=== PATIENT | female | born 1980 | race Caucasian/White ===

== ENCOUNTER 2017-04-04 05:48 | Inpatient (IN) | payer MEDICAID ==
[2017-04-04] VITALS (12 sets, daily range): BP systolic 104–133; BP diastolic 63–75; PULSE 54–89; RESP 18–26; TEMP 97.8–98.9; O2SAT 97–100
[~2017-04-04] VITALS: Ht 157.5 cm; Wt 61.2 kg
[2017-04-04] MEDS ORDERED: SUBUTEX PO (06:12)
[2017-04-04] MEDS ORDERED: PREN29TA PO (06:13)
[2017-04-04] MEDS ORDERED: VIST25CA PO (06:14)
[2017-04-04 06:47] LABS: AUTOMATED NEUTROPHIL # 4.9 TH/MM3 (1.8-7.7); BASOPHIL % 0.4 % (0.0-2.0); EOSINOPHIL # 0.3 TH/MM3 (0-0.4); EOSINOPHIL % 2.9 % (0.0-4.0); HEMATOCRIT 32.1 % (35.0-46.0); HEMO FLAGS DIFF FINAL; LYMPH % 29.9 % (9.0-44.0); LYMPHOCYTE # 2.6 TH/MM3 (1.0-4.8); MEAN CORPUSCULAR HEMOGLOBIN 27.6 PG (27.0-34.0); MEAN CORPUSCULAR HGB CONC 33.6 % (32.0-36.0); MONO % 10.7 % (0.0-8.0); NEUT % 56.1 % (16.0-70.0); PLATELET COUNT 360 TH/MM3 (150-450); RED BLOOD COUNT 3.92 MIL/MM3 (4.00-5.30); RED CELL DISTRIBUTION WIDTH 16.5 % (11.6-17.2); WHITE BLOOD COUNT 8.8 TH/MM3 (4.0-11.0)
[2017-04-04] MEDS ORDERED: CITRIC ACID-SODIUM CITRATE LIQ 30 ML UDC ONE (06:47)
[2017-04-04] MEDS ORDERED: ceFAZolin INJ 1,000 MG VIAL ONE (07:10)
[2017-04-04] MEDS ORDERED: LACTATED RINGER'S 1000 ML IV ONE (07:15)
[2017-04-04] MEDS ORDERED: ceFAZolin 1,000 MG/NS 100 ML IV SCH ×2 (07:15)
[2017-04-04] MEDS ORDERED: CITRIC ACID-SODIUM CITRATE LIQ 30 ML UDC PO SCH (07:15)
[2017-04-04] MEDS: LACTATED RINGER'S 1000 ML IV SCH ×4 (07:15→21:34)
[2017-04-04 07:28] LABS: BACTERIA, URINE RARE /hpf; BLOOD, URINE NEG (NEG); COMMENT (UR) CULT NOT INDICATED; CULTURE IF INDICATED CULT NOT INDICATED; GLUCOSE,URINE NEG (NEG); KETONE, URINE NEG (NEG); MUCUS URINE FEW /lpf (OCC); NITRITE,URINE NEG (NEG); SQUAMOUS EPITHELIAL CELL URINE 4 /hpf (0-5); URINE COLOR YELLOW (YELLW/STRAW)
--- NOTE | 2017-04-04 07:48 | HHI.HP ---
HPI Chief Complaint 39 week IUP with accessory placental lobe. prior section and in recovery from opioid use disorder Date Seen: Apr 04, 2017 Time Seen: 07:30 Travel History International Travel<30 Days: No Contact w/Intl Traveler<30Days: No Known Affected Area: No History of Present Illness HPI 36 yo swf at 39 weeks currently residing at [facility] here for scheduled repeat section. Known accessory lobe with unclear location of connection despite dopplers. Has been in recovery from polysubstance use. On subutex and compliant with contract No PTL, HTN, GDM No leaking, bleeding No regular UCs. Weeks Gestation: 39 Para: 1 : 1 History Past Medical History Medical History: Denies Significant Hx Obstetric History Obstetric History one prior section Past Surgical History Narrative Surgical prior section Surgical History: No Previous Surgery Family History Family History: Negative Social History Alcohol Use: No Tobacco Use: Yes Substance Abuse: Yes Allergies-Medications (Allergen,Severity, Reaction): Coded Allergies: No Known Allergies (Verified Allergy, Mild, 04/04/17) Home Meds Reported Medications Hydroxyzine Pamoate (Vistaril) 25 Mg Cap, 25 MG PO TID Y for ANXIETY, CAP 0 Refills 04/04/17 Vit-Iron Carbonyl ( Plus Iron 29-1 mg) 29 Mg Iron-1 Mg Tab, 1 TAB PO DAILY for Nutritional Supplement, #30 TAB 0 Refills 04/04/17 [Subutex] No Conflict Check, 12 MG PO DAILY 04/04/17 Review of Systems General / Constitutional: No: Fever, Weight Gain, Chills, Other Physical Exam Vital Signs Date Time Temp Pulse Resp B/P (MAP) Pulse Ox O2 Delivery O2 Flow Rate FiO2 04/04/17 06:30 97.8 04/04/17 06:15 18 04/04/17 06:12 85 104/69 (81) Narrative GENERAL: Well-nourished, well-developed patient. SKIN: Warm and dry. HEAD: Normocephalic and atraumatic. EYES: No scleral icterus. No injection or drainage. ENT: No nasal drainage noted. Mucous membranes pink. Airway patent. NECK: Supple, trachea midline. No JVD. CARDIOVASCULAR: Regular rate and rhythm without murmurs, gallops, or rubs. RESPIRATORY: Breath sounds equal bilaterally. No accessory muscle use. BREASTS: Bilateral exam showed no masses , no retractions, no nipple discharge. ABDOMEN/GI: Abdomen soft, non-tender, bowel sounds present, no rebound, no guarding Gravid to [-] weeks size term fundus long/closed/posterior/firm EXTREMITIES: No cyanosis or edema. BACK: Nontender without obvious deformity. No CVA tenderness. NEUROLOGICAL: Awake and alert. Motor and sensory grossly within normal limits. Five out of 5 muscle strength in all muscle groups. Normal speech. Caprini VTE Risk Assessment Caprini VTE Risk Assessment: No/Low Risk (score <= 1) Caprini Risk Assessment Model Point Value = 1 Point Value = 2 Point Value = 3 Point Value = 5 Age 41-60 Minor surgery BMI > 25 kg/m2 Swollen legs Varicose veins or History of unexplained or recurrent spontaneous Oral contraceptives or hormone replacement Sepsis (< 1 month) Serious lung disease, including pneumonia (< 1 month) Abnormal pulmonary function Acute myocardial infarction Congestive heart failure (< 1 month) History of inflammatory bowel disease Medical patient at bed rest Age 61-74 Arthroscopic surgery Major open surgery (> 45 min) Laparoscopic surgery (> 45 min) Malignancy Confined to bed (> 72 hours) Immobilizing plaster cast Central venous access Age >= 75 History of VTE Family history of VTE Factor V Leiden Prothrombin [id number] Lupus anticoagulant Anticardiolipin antibodies Elevated serum homocysteine Heparin-induced thrombocytopenia Other congenital or acquired thrombophilia Stroke (< 1 month) Elective arthroplasty Hip, pelvis, or leg fracture Acute spinal cord injury (< 1 month) Prophylaxis Regimen Total Risk Factor Score Risk Level Prophylaxis Regimen 0-1 Low Early ambulation 2 Moderate Order ONE of the following: *Sequential Compression Device (SCD) *Heparin 5000 units SQ BID 3-4 Higher Order ONE of the following medications: *Heparin 5000 units SQ TID *Enoxaparin/Lovenox 40 mg SQ daily (WT < 150 kg, CrCl > 30 mL/min) *Enoxaparin/Lovenox 30 mg SQ daily (WT < 150 kg, CrCl > 10-29 mL/min) *Enoxaparin/Lovenox 30 mg SQ BID (WT < 150 kg, CrCl > 30 mL/min) AND/OR *Sequential Compression Device (SCD) 5 or more Highest Order ONE of the following medications: *Heparin 5000 units SQ TID (Preferred with Epidurals) *Enoxaparin/Lovenox 40 mg SQ daily (WT < 150 kg, CrCl > 30 mL/min) *Enoxaparin/Lovenox 30 mg SQ daily (WT < 150 kg, CrCl > 10-29 mL/min) *Enoxaparin/Lovenox 30 mg SQ BID (WT < 150 kg, CrCl > 30 mL/min) AND *Sequential Compression Device (SCD) Data Data Orders Orders Admit To Inpatient (04/04/17 ) Code Status (04/04/17 05:58) Vital Signs (Adult) .ON ADMISSION (04/04/17 05:58) Activity Oob Ad Marya (04/04/17 05:58) Heart (04/04/17 05:58) Urinary Catheter Management MATY.Q8H (04/04/17 05:58) ^ Preps (04/04/17 05:58) Scd / Kamari / Foot Pump MATY.QSHIFT (04/04/17 05:58) ^ Ultrasound For Locatio (04/04/17 05:58) Diet Npo (04/04/17 Breakfast) Type And Screen (04/04/17 05:58) Complete Blood Count With Diff (04/04/17 05:58) Urinalysis - C+S If Indicated (04/04/17 05:58) Drug Screen, Random Urine (04/04/17 05:58) Specimen To Be Collected PRN (04/04/17 05:58) Specimen To Be Collected PRN (04/04/17 05:58) Citric Acid-Sodium Citrate Liq (Bicitra (04/04/17 06:47) Cefazolin Inj (Ancef Inj) (04/04/17 07:10) Lactated Ringer's 1000 Ml Inj (Lr 1000 M (04/04/17 07:15) Lactated Ringer's 1000 Ml Inj (Lr 1000 M (04/04/17 07:15) Citric Acid-Sodium Citrate Liq (Bicitra (04/04/17 07:15) Cefazolin Inj (Ancef Inj) (04/04/17 07:15) Labs Laboratory Tests Test 04/04/17 06:20 White Blood Count 8.8 Red Blood Count 3.92 Hemoglobin 10.8 Hematocrit 32.1 Mean Corpuscular Volume 82.0 Mean Corpuscular Hemoglobin 27.6 Mean Corpuscular Hemoglobin Concent 33.6 Red Cell Distribution Width 16.5 Platelet Count 360 Mean Platelet Volume 9.2 Neutrophils (%) (Auto) 56.1 Lymphocytes (%) (Auto) 29.9 Monocytes (%) (Auto) 10.7 Eosinophils (%) (Auto) 2.9 Basophils (%) (Auto) 0.4 Neutrophils # (Auto) 4.9 Lymphocytes # (Auto) 2.6 Monocytes # (Auto) 0.9 Eosinophils # (Auto) 0.3 Basophils # (Auto) 0.0 CBC Comment DIFF FINAL Differential Comment Assessment/Plan Assessment and Plan for repeat section and desired BTL discussed risks, benefit, alternative failure rate of tubel discussed repeat section risks and expectations For section now Kacie Rey MD Apr 04, 2017 07:48
[2017-04-04] MEDS ORDERED: SODIUM CHLORIDE 0.9% FLUSH 10 ML FLUSH IV FLUSH PRN (08:30)
[2017-04-04] MEDS ORDERED: ACETAMINOPHEN 1000 MG/100 ML 100 ML IV ONE ×2 (08:30→09:21)
[2017-04-04] MEDS ORDERED: oxyCODONE/ACETAMINOPHEN 5 MG/325 MG TAB PO PRN ×2 (08:30)
[2017-04-04] MEDS ORDERED: OXYTOCIN 30 UNITS-500ML PREMIX 500 ML IV ONE (08:30)
[2017-04-04] MEDS ORDERED: ZOLPIDEM TARTRATE 5 MG TAB PO PRN (08:30)
[2017-04-04] MEDS ORDERED: ONDANSETRON HCL 4 MG/2 ML VIAL IV PUSH PRN (08:30)
[2017-04-04] MEDS ORDERED: SIMETHICONE 80 MG CHEWABLE TAB PO PRN (08:30)
--- NOTE | 2017-04-04 08:37 | PD.OB.DELI ---
Procedure Note Section Procedure Pre Op Diagnosis: (1) Opioid use disorder, mild, in controlled environment (2) Status post repeat low transverse section Post Op Diagnosis: (1) Status post repeat low transverse section Performed by Kacie Rey Procedure: Repeat Low Transverse Sec, Other (tubal ligation) Indication for delivery: Desired elective repeat , Other (tubal ligation) Previous condition: Uterine Window Informed consent obtained: For anesthesia, For procedure Confirmed correct: Patient, Procedure, Site, Time-out taken Anesthesia: Spinal Medication prior to procedure: As documented in eMAR, Antibiotics, IV Monitoring during procedure: Blood pressure monitoring, talent acquisition director, Pulse oximetry Urinary catheter: Inserted using sterile technique, To dependent drainage Sterile preparation: Duraprep, In usual fashion Position: Supine with wedge to right side Operative Features Skin Incision: Pfannenstiel Uterine Incision: Low transverse w/knife / blunt ext Membranes Ruptured: Artificially Presentation: Occiput anterior Delivery date: Apr 04, 2017 Delivery time: 08:35 Delivery of : Assisted Infant: Female One Minute : 8 Five Minute : 8 Weight: 7 Status of : Viable, Umbilical cord, Nursery present, Resuscitation required Placenta delivered: Intact, Other (accessory lobe noted) Medications: Antibiotics, Oxytocin Estimated blood loss: 500 Procedure tolerated: Well Maternal Condition: Stable Baby Complications: Other (TTN) Procedure in detail dictated Kacie Rey MD Apr 04, 2017 08:37
[2017-04-04] MEDS ORDERED: DEXAMETHASONE SOD PHOS 20 MG/5 ML VIAL ONE (08:58)
[2017-04-04] MEDS ORDERED: ROPIVACAINE 0.5% PF INJ 30 ML VIAL ONE (08:58)
[2017-04-04] MEDS: SODIUM CHLORIDE 0.9% FLUSH 10 ML FLUSH IV FLUSH SCH ×2 (09:00→21:00)
[2017-04-04] MEDS ORDERED: OXYTOCIN 30 UNITS-500ML PREMIX 500 ML ONE (09:21)
[2017-04-04] MEDS ORDERED: KETOROLAC TROMETHAMINE 30 MG/ML (IVP) VIAL ONE (09:32)
--- NOTE | 2017-04-04 09:32 | PD.OP ---
Operative Report Date of Surgery: Apr 04, 2017 Preoperative Diagnosis: (1) 39 weeks gestation of (2) Opioid use disorder, mild, in controlled environment Postoperative Diagnosis: (1) 39 weeks gestation of (2) Opioid use disorder, mild, in controlled environment Procedure: Repeat Low Transverse Section with right tubal ligation and left salpingectomy Anesthesia: Spinal Surgeon: Kacie Rey Quality Control Engineer(s): Joy Flaherty and Christie Chen, MS3 Resident Surgeon: Shantelle Valero Operation and Findings: PREOPERATIVE DIAGNOSIS 39 weeks gestation Repeat Bilateral Tubal Ligation (Right Tubal Ligation, Left Salpingectomy) POSTOPERATIVE DIAGNOSIS 39 weeks gestation Repeat Bilateral Tubal Ligation (Right Tubal Ligation, Left Salpingectomy) PROCEDURE Repeat low transverse section with right tubal ligation and left salpingectomy ANESTHESIA Spinal SURGEON Kacie Rey MD and Shantelle Valero, R3 FINDINGS Left uterine accessory lobe A normal viable female weighing 3249g. 's 8/8. COMPLICATIONS None COUNTS Correct ESTIMATED BLOOD LOSS 650 cc FLUIDS Crystalloids CONDITION The patient tolerated the procedure well and went to the recovery room in good condition. PROCEDURE IN DETAIL The patient was taken to the operating room, identified by name band and verbally. The time out was done and patient was prepped and draped in the usual sterile fashion for section. A Pfannenstiel incision was made at the site of the patient's previous scar, then carried down to the fascia. The fascia was taken off the rectus muscle by blunt and sharp dissection, taking care to avoid the bladder which was in close proximity to the inferior aspect of the fascia. The rectus muscles were spread bluntly and the peritoneum entered under direct vision without difficulty. The incision was extended and a bladder blade was placed. A bladder flap was created in the usual fashion and the uterus was incised transversely along the lower uterine segment and extended bluntly. The vertex was grasped and fundal pressure was applied. The head was delivered and then the remainder of the infant was delivered without difficulty. Cord clamping was delayed for 45 seconds with milking of the cord before the cord was doubly clamped and cut and the baby was handed to the baby nurse. The placenta was delivered manually. The uterus, notable for a left accessory lobe, was curettaged with a wet lap. The uterine incision was repaired with #1 chromic in a running locking fashion in two layers with the second imbricating the first. Attention was turned to the the fallopian tubes. The right fallopian tube was identified and the fimbriated end was inspected and found to be adhered to the surrounding structures by scar tissue. Using #2 plain suture, a small portion of the fallopian tube was ligated and removed sharply and turned in for pathologic diagnosis. The left fallopian tube was identified and the fimbriated end was grasped and ligated using #2 plain suture then removed sharply. Hemostasis was excellent. Once this had been accomplished, all incisions were carefully inspected. Hemostasis was excellent. The gutters were irrigated and cleaned of blood and debris. The rectus muscles were reapproximated with 0 Vicryl in a running fashion and then the fascia was repaired with 0 Vicryl in a running fashion. The subcuticular layer was repaired with 3-0 plain and the skin with a 4-0 Monocryl in a subcuticular fashion. The wound was sterilely dressed with Mepilex. The patient tolerated the procedure well and went to the recovery room in good condition. Shantelle Valero MD, R3 Apr 04, 2017 09:32
[2017-04-04] MEDS: LACTATED RINGER'S 1000 ML INJ 1,000 ML IV SCH ×2 (13:27→21:33)
[2017-04-04 13:40] LABS: CHLAMYDIA PCR NOT DETECTED (NOT DETECT); NEISSERIA PCR NOT DETECTED (NOT DETECT)
[2017-04-04] MEDS: KETOROLAC TROMETHAMINE 60 MG/2 ML (IM) VIAL IM PRN ×2 (15:45→22:47)
[2017-04-04] MEDS ORDERED: OXYTOCIN 30 UNITS-500ML PREMIX 500 ML IV PRN (18:30)
[2017-04-04] MEDS: BUPRENORPHINE HCL 8 MG SUBLINGUAL TAB SL SCH (18:38)
[2017-04-05 01:05] VITALS: BP 93/54; PULSE 85; RESP 16; TEMP 98.5; O2SAT 95
[2017-04-05 05:05] VITALS: BP 107/65; PULSE 65; RESP 16; TEMP 98.8; O2SAT 95
[2017-04-05] MEDS: BUPRENORPHINE HCL 8 MG SUBLINGUAL TAB SL SCH ×2 (05:25→18:37)
[2017-04-05 05:53] LABS: AUTOMATED NEUTROPHIL # 8.5 TH/MM3 (1.8-7.7); BASOPHIL % 0.3 % (0.0-2.0); EOSINOPHIL # 0.1 TH/MM3 (0-0.4); EOSINOPHIL % 0.4 % (0.0-4.0); HEMATOCRIT 28.1 % (35.0-46.0); HEMO FLAGS DIFF FINAL; LYMPH % 21.5 % (9.0-44.0); LYMPHOCYTE # 2.7 TH/MM3 (1.0-4.8); MEAN CELL VOLUME 82.1 FL (80.0-100.0); MEAN CORPUSCULAR HEMOGLOBIN 28.1 PG (27.0-34.0); MEAN CORPUSCULAR HGB CONC 34.3 % (32.0-36.0); MONO % 10.9 % (0.0-8.0); NEUT % 66.9 % (16.0-70.0); PLATELET COUNT 364 TH/MM3 (150-450); RED BLOOD COUNT 3.42 MIL/MM3 (4.00-5.30); RED CELL DISTRIBUTION WIDTH 16.5 % (11.6-17.2); WHITE BLOOD COUNT 12.7 TH/MM3 (4.0-11.0)
[2017-04-05] MEDS ORDERED: KETOROLAC TROMETHAMINE 60 MG/2 ML (IM) VIAL IM ONE (06:30)
[2017-04-05] MEDS ORDERED: IBUP-1129 PO (06:37)
--- NOTE | 2017-04-05 06:38 | HHI.OB ---
Subjective Post Operative Day: 1 Remarks doing well, ambulating, voiding, TPO no n/v, + flatus, pain controlled, VB < menses Objective Vitals/I&O Vital Signs Date Time Temp Pulse Resp B/P (MAP) Pulse Ox O2 Delivery O2 Flow Rate FiO2 04/05/17 05:05 98.8 65 16 107/65 (79) 95 04/05/17 01:05 98.5 85 16 93/54 (67) 95 04/04/17 20:30 97.9 89 18 111/71 (84) 04/04/17 18:40 98.6 83 18 106/70 (82) 97 04/04/17 14:05 98.9 54 18 116/72 (87) 99 04/04/17 12:05 18 04/04/17 09:53 117/71 (86) 04/04/17 09:53 98.0 80 24 100 04/04/17 09:40 77 22 117/71 (86) 100 04/04/17 09:25 133/64 (87) 04/04/17 09:25 70 24 100 04/04/17 09:10 116/75 (89) 04/04/17 09:10 26 99 04/04/17 09:10 70 04/04/17 08:55 73 24 108/63 (78) 98 04/04/17 08:55 98.0 Result Diagram: 04/05/17516 Objective Remarks GENERAL: Well-nourished, well-developed patient. CARDIOVASCULAR: Regular rate and rhythm without murmurs, gallops, or rubs. RESPIRATORY: Breath sounds equal bilaterally. No accessory muscle use. ABDOMEN/GI: Abdomen soft, non-tender, bowel sounds present. Incision: bandage = Clean, dry and intact. Fundus: Firm, non-tender at umbilicus. GENITOURINARY: Light to moderate bleeding. EXTREMITIES: No cyanosis or edema, non-tender, without signs of DVT. Not wearing SCDs Medications and IVs Current Medications Medications (Trade) Dose Ordered Sig/Lexus Route Start Time Stop Time Status Last Admin Lactated Ringer's 1,000 ml @ 150 mls/hr Q6H40M IV 04/04/17 07:15 04/04/17 07:15 (Bicitra Liq) 30 ml CORRESPONDENCE COORDINATOR PO 04/04/17 07:15 04/07/17 07:14 Cefazolin Sodium 1000 mg/Sodium Chloride 100 ml @ 200 mls/hr CORRESPONDENCE COORDINATOR IV 04/04/17 07:15 04/07/17 07:14 Lactated Ringer's 1,000 ml @ 100 mls/hr Q10H IV 04/04/17 13:27 04/05/17 09:26 Oxytocin 500 ml @ 100 mls/hr UNSCH X1 PRN IV 04/04/17 18:30 04/05/17 18:29 (NS Flush) 2 ml BID IV FLUSH 04/04/17 09:00 (NS Flush) 2 ml UNSCH PRN IV FLUSH 04/04/17 08:30 (Mylicon Chew) 80 mg QID PRN PO 04/04/17 08:30 (Toradol Inj) 30 mg Q6H PRN IM 04/04/17 08:30 04/05/17 08:29 04/04/17 22:47 (Ambien) 5 mg HS PRN PO 04/04/17 08:30 04/04/17 22:46 (M-M-R Ii Inj) 0.5 ml ONCE ONCE SQ 04/05/17 16:00 04/05/17 16:01 (Boostrix Inj) 0.5 ml ONCE ONCE IM 04/05/17 16:00 04/05/17 16:01 (Zofran Inj) 4 mg Q6H PRN IV PUSH 04/04/17 08:30 (Buprenorphine) 4 mg DAILY@0600 SL 04/05/17 06:00 04/05/17 05:25 (Buprenorphine) 8 mg DAILY@1800 SL 04/04/17 18:00 04/04/17 18:38 Assessment/Plan Assessment and Plan 36 yo s/p scheduled RLTCS and BTL at 39w 1. POD #1: AF, VSS, meeting milestones, allow 1 more dose toradol, then begin motrin, encourged to wear her SCDs and ambulate today. Has rx for subutex at [facility], will discuss with Dr. Quispe if would send her with additional percocet - AM CDC appropriate 2. Opiod use disorder: taking subutex here, see above 3. PP: female, encouraged to breast feed, s/p BTL 4. Hep C: no needed intervention Armaan Alvarado MD Apr 05, 2017 06:38
[2017-04-05 07:30] VITALS: BP 105/68; PULSE 60; RESP 16; TEMP 98.2; O2SAT 97
[2017-04-05] MEDS: IBUPROFEN 600 MG TAB PO PRN ×2 (14:19→21:08)
[2017-04-05] MEDS ORDERED: MEASLES, MUMPS, RUBELLA VACCINE 0.5 ML VIAL SQ ONE (16:00)
[2017-04-05] MEDS ORDERED: DIPHTH/TETANUS/ACEL PERTUSSIS (BOOSTER) 0.5 ML VIAL/PFS IM ONE (16:00)
[2017-04-05] MEDS: LACTATED RINGER'S 1000 ML IV SCH (17:16)
[2017-04-05 19:30] VITALS: BP 117/60; PULSE 71; RESP 20; TEMP 97.9; O2SAT 99
[2017-04-06 01:08] VITALS: RESP 20
[2017-04-06] MEDS: BUPRENORPHINE HCL 8 MG SUBLINGUAL TAB SL SCH ×2 (06:44→18:02)
[2017-04-06] MEDS: IBUPROFEN 600 MG TAB PO PRN ×3 (06:46→18:02)
--- NOTE | 2017-04-06 07:11 | HHI.OB ---
Subjective Post Operative Day: 2 Remarks Doing well, pain controlled, tolerating diet, passing flatus, does have concerns about her pain control when she is at [employer]. Objective Vitals/I&O Vital Signs Date Time Temp Pulse Resp B/P (MAP) Pulse Ox O2 Delivery O2 Flow Rate FiO2 04/06/17 01:08 20 04/05/17 19:30 97.9 04/05/17 19:30 20 04/05/17 19:30 71 117/60 (79) 04/05/17 19:30 99 04/05/17 07:30 98.2 60 16 105/68 (80) 97 Result Diagram: 04/05/17 0517 Objective Remarks GENERAL: Well-nourished, well-developed patient. CARDIOVASCULAR: Regular rate and rhythm without murmurs, gallops, or rubs. RESPIRATORY: Breath sounds equal bilaterally. No accessory muscle use. ABDOMEN/GI: Abdomen soft, non-tender, bowel sounds present. Incision: Incision Clean, dry and intact. Fundus: Firm, non-tender at umbilicus. GENITOURINARY: Light to moderate bleeding. EXTREMITIES: No cyanosis or edema, non-tender, without signs of DVT. Not wearing SCDs Medications and IVs Current Medications Medications (Trade) Dose Ordered Sig/Lexus Route Start Time Stop Time Status Last Admin Lactated Ringer's 1,000 ml @ 150 mls/hr Q6H40M IV 04/04/17 07:15 04/04/17 07:15 (Bicitra Liq) 30 ml ENVIRONMENTAL PROPERTY ASSESSOR PO 04/04/17 07:15 04/07/17 07:14 Cefazolin Sodium 1000 mg/Sodium Chloride 100 ml @ 200 mls/hr ENVIRONMENTAL PROPERTY ASSESSOR IV 04/04/17 07:15 04/07/17 07:14 (NS Flush) 2 ml BID IV FLUSH 04/04/17 09:00 (NS Flush) 2 ml UNSCH PRN IV FLUSH 04/04/17 08:30 (Mylicon Chew) 80 mg QID PRN PO 04/04/17 08:30 (Ambien) 5 mg HS PRN PO 04/04/17 08:30 04/04/17 22:46 (Zofran Inj) 4 mg Q6H PRN IV PUSH 04/04/17 08:30 (Buprenorphine) 4 mg DAILY@0600 SL 04/05/17 06:00 04/06/17 06:44 (Buprenorphine) 8 mg DAILY@1800 SL 04/04/17 18:00 04/05/17 18:37 (Motrin) 600 mg Q6H PRN PO 04/05/17 12:30 04/06/17 06:46 Assessment/Plan Assessment and Plan 36 yo s/p scheduled RLTCS and BTL at 39w 1. POD #2: AF, VSS, meeting milestones, bandage removed, asked nurse to apply Steri-Strips and AVD pad. Anticipate discharge home tomorrow 2. Opiod use disorder: taking subutex here 3. PP: female, encouraged to breast feed, s/p BTL 4. Hep C: no needed intervention Armaan Alvarado MD Apr 06, 2017 07:11
[2017-04-06 08:00] VITALS: BP 115/62; PULSE 56; RESP 15; TEMP 97.7; O2SAT 97
[2017-04-06] MEDS ORDERED: BUPR8SUB SL ×2 (09:33)
[2017-04-06] MEDS ORDERED: IBUP-232 PO (09:35)
[2017-04-06] MEDS ORDERED: PAME25CA PO (09:37)
[2017-04-06] MEDS ORDERED: CELE20TA PO (09:51)
[2017-04-06] MEDS: NORTRIPTYLINE HCL 25 MG CAP PO PRN ×2 (11:12→18:02)
[2017-04-06 20:00] VITALS: BP 117/72; PULSE 91; RESP 20; TEMP 98; O2SAT 100
[2017-04-07] MEDS: IBUPROFEN 600 MG TAB PO PRN ×2 (02:45→08:26)
[2017-04-07] MEDS: NORTRIPTYLINE HCL 25 MG CAP PO PRN ×2 (02:50→11:58)
[2017-04-07] MEDS: BUPRENORPHINE HCL 8 MG SUBLINGUAL TAB SL SCH (06:05)
[2017-04-07 08:18] VITALS: BP 125/81; PULSE 66; RESP 16; TEMP 97.5
--- NOTE | 2017-04-07 08:19 | HHI.OB ---
Subjective Post Operative Day: 3 Remarks doing well, ready for d/c home Objective Vitals/I&O Vital Signs Date Time Temp Pulse Resp B/P (MAP) Pulse Ox O2 Delivery O2 Flow Rate FiO2 04/07/17 04:00 16 04/06/17 20:00 98.0 91 20 100 04/06/17 20:00 117/72 (87) Result Diagram: 04/05/17 0517 Objective Remarks GENERAL: Well-nourished, well-developed patient. CARDIOVASCULAR: Regular rate and rhythm without murmurs, gallops, or rubs. RESPIRATORY: Breath sounds equal bilaterally. No accessory muscle use. ABDOMEN/GI: Abdomen soft, non-tender, bowel sounds present. Incision: Incision Clean, dry and intact. Fundus: Firm, non-tender at umbilicus. GENITOURINARY: Light to moderate bleeding. EXTREMITIES: No cyanosis or edema, non-tender, without signs of DVT. Not wearing SCDs Medications and IVs Current Medications Medications (Trade) Dose Ordered Sig/Lexus Route Start Time Stop Time Status Last Admin Lactated Ringer's 1,000 ml @ 150 mls/hr Q6H40M IV 04/04/17 07:15 04/04/17 07:15 (NS Flush) 2 ml BID IV FLUSH 04/04/17 09:00 (NS Flush) 2 ml UNSCH PRN IV FLUSH 04/04/17 08:30 (Mylicon Chew) 80 mg QID PRN PO 04/04/17 08:30 (Ambien) 5 mg HS PRN PO 04/04/17 08:30 04/04/17 22:46 (Zofran Inj) 4 mg Q6H PRN IV PUSH 04/04/17 08:30 (Buprenorphine) 4 mg DAILY@0600 SL 04/05/17 06:00 04/07/17 06:05 (Buprenorphine) 8 mg DAILY@1800 SL 04/04/17 18:00 04/06/17 18:02 (Motrin) 600 mg Q6H PRN PO 04/05/17 12:30 04/07/17 02:45 (Pamelor) 25 mg TID PRN PO 04/06/17 09:45 04/07/17 02:50 (CeleXA) 20 mg DAILY PO 04/07/17 09:00 Assessment/Plan Assessment and Plan 36 yo s/p scheduled RLTCS and BTL at 39w 1. POD #3: AF, VSS, meeting milestones, d/c home today.Aware of post op follow up and precautions 2. Opioid use disorder: taking subutex here 3. PP: female, encouraged to breast feed, s/p BTL 4. Hep C: no needed intervention Armaan Alvarado MD Apr 07, 2017 08:19
--- NOTE | 2017-04-07 08:20 | HHI.DCPOC ---
Discharge Care Plan Diagnosis: (1) Hepatitis C (2) Status post repeat low transverse section (3) Opioid use disorder, mild, in controlled environment Your Health Problems Are: delivery Report Symptoms to Your Doctor -Temperature above 100.5 degrees -Redness, of incision or excessive or foul smelling drainage -Unusual pain or calf pain -Increased vaginal bleeding -Painful or difficulty urinating -Feelings of extreme sadness or anxiety after 2 weeks Goals to Promote Your Health * To prevent worsening of your condition and complications * To maintain your health at the optimal level Directions to Meet Your Goals Take your medications as prescribed Follow your dietary instruction Follow activity as directed Ensure plenty of rest for recovery Drink fluids for hydration Keep your appointments as scheduled Take your immunizations and boosters as scheduled If your symptoms worsen call your PCP, if no PCP go to Urgent Care Center or Emergency Room Smoking is Dangerous to Your Health. Avoid second hand smoke Call the 24-hour crisis hotline for domestic abuse at Armaan Alvarado MD Apr 07, 2017 08:20
[2017-04-07] MEDS ORDERED: CITALOPRAM HYDROBROMIDE 20 MG TAB PO SCH (09:00)
[2017-04-07] MEDS ORDERED: INFLUENZA VIRUS VACCINE (QUADRIVALENT) 0.5 ML SYR IM ONE (12:30)
[2017-04-08] MEDS ORDERED: INFLUENZA VIRUS VACCINE (QUADRIVALENT) 0.5 ML SYR IM ONE (10:00)
== END 2017-04-07 13:59 | disposition home or self-care (01) | DRG 765 ==
LOC: H2EB 05:48 → H1EA 10:25
PROVIDERS: ADMIT Obstetrics & Gynecology; ATTEND Obstetrics & Gynecology
PROC: 10D00Z1 Extraction of Products of Conception, Low, Open Approach (ICD-10-PCS; principal; 2017-04-04)
PROC: 0UB70ZZ Excision of Bilateral Fallopian Tubes, Open Approach (ICD-10-PCS; 2017-04-04)
DX: O99.334 Smoking (tobacco) complicating childbirth (principal); O98.42 Viral hepatitis complicating childbirth; O34.211 Maternal care for low transverse scar from previous cesarean delivery; O99.324 Drug use complicating childbirth; Z37.0 Single live birth; Z3A.39 39 weeks gestation of pregnancy; Z30.2 Encounter for sterilization; F11.10 Opioid abuse, uncomplicated; B19.20 Unspecified viral hepatitis C without hepatic coma; Z23 Encounter for immunization
CPT/HCPCS: 59025; 80307; 81001; 85025; 86850; 86900; 86901; 87491; 87591; 88302; 90686; 90715; J0131; J0690; J1100; J1885; J2590; J2795; J7120; Q2038

== ENCOUNTER 2017-10-20 10:26 | Emergency (ER) | payer SELFPAY ==
[2017-10-20] VITALS (10 sets, daily range): BP systolic 105–120; BP diastolic 58–76; PULSE 66–98; RESP 16–18; TEMP 98.2; O2SAT 95–98
[~2017-10-20] VITALS: Ht 160 cm; Wt 56.2 kg
[~2017-10-20 10:26] MED LIST: BUPR8SUB SL; CELE20TA PO; IBUP-1129 PO; IBUP-232 PO; PAME25CA PO; PREN29TA PO; SUBUTEX PO; VIST25CA PO
[2017-10-20] MEDS ORDERED: SERO100T PO (10:56)
[2017-10-20] MEDS ORDERED: BUPR150CR PO (10:56)
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
[2017-10-20 11:16] LABS: BASOPHIL % 0.4 % (0.0-2.0); EOSINOPHIL % 0.2 % (0.0-4.0); HEMATOCRIT 39.4 % (35.0-46.0); HEMOGLOBIN 13.1 GM/DL (11.6-15.3); LYMPH % 19.9 % (9.0-44.0); LYMPHOCYTE # 2.2 TH/MM3 (1.0-4.8); MEAN CELL VOLUME 89.3 FL (80.0-100.0); MEAN CORPUSCULAR HEMOGLOBIN 29.6 PG (27.0-34.0); MEAN CORPUSCULAR HGB CONC 33.2 % (32.0-36.0); MEAN PLATELET VOLUME 9.9 FL (7.0-11.0); MONO % 7.7 % (0.0-8.0); MONOCYTE # 0.9 TH/MM3 (0-0.9); NEUT % 71.8 % (16.0-70.0); PLATELET COUNT 239 TH/MM3 (150-450); RED BLOOD COUNT 4.41 MIL/MM3 (4.00-5.30); RED CELL DISTRIBUTION WIDTH 13.7 % (11.6-17.2); WHITE BLOOD COUNT 11.1 TH/MM3 (4.0-11.0)
[2017-10-20 11:31] LABS: CHLORIDE 107 MEQ/L (98-107); SODIUM (NA) 140 MEQ/L (136-145)
[2017-10-20 11:34] LABS: CALCIUM 9.1 MG/DL (8.5-10.1)
[2017-10-20 11:35] LABS: ALBUMIN 3.9 GM/DL (3.4-5.0); BLOOD UREA NITROGEN 16 MG/DL (7-18); GLUCOSE,RANDOM 115 MG/DL (74-106)
[2017-10-20 11:37] LABS: AST (GOT) 35 U/L (15-37)
[2017-10-20 11:38] LABS: ALT (GPT) 53 U/L (10-53); CREATININE 0.62 MG/DL (0.50-1.00); GLOMERULAR FILTRATION RATE 109 ML/MIN (>89)
[2017-10-20 11:39] LABS: TOTAL BILIRUBIN ADULT 0.6 MG/DL (0.2-1.0); TOTAL PROTEIN 8.1 GM/DL (6.4-8.2)
[2017-10-20 11:40] LABS: ALKALINE PHOSPHATASE 80 U/L (45-117)
--- NOTE | 2017-10-20 11:40 | RADRPT ---
EXAM DATE: 10/20/2017 11:36 AM EDT AGE/SEX: 37 years / Female INDICATIONS: Vomiting, overdose CLINICAL DATA: This is the patient's initial encounter. Patient reports that signs and symptoms have been present for 1 day and indicates a pain score of Nonresponsive. MEDICAL/SURGICAL HISTORY: None. None. COMPARISON: No prior [place] exams available for comparison. FINDINGS: A single AP view of the chest demonstrates the lungs to be symmetrically aerated without evidence of mass, infiltrate or effusion. The cardiomediastinal contours are unremarkable. Osseous structures a re intact. CONCLUSION: Negative examination. Electronically signed by: Lexie Huggins MD 10/20/2017 11:38 AM EDT
--- NOTE | 2017-10-20 11:59 | RADRPT ---
EXAM DATE: 10/20/2017 11:47 AM EDT AGE/SEX: 37 years / Female INDICATIONS: Altered mental status. Overdose. CLINICAL DATA: This is the patient's initial encounter. Patient reports that signs and symptoms have been present for 1 day and indicates a pain score of 0/10. MEDICAL/SURGICAL HISTORY: None. section. RADIATION DOSE: 51.56 CTDI (mGy) COMPARISON: No prior [place] exams available for comparison. TECHNIQUE: CT of the head without contrast. Using automated exposure control and adjustment of the mA and/or kV according to patient size, radiation dose was kept as low as reasonably achievable to ob tain optimal diagnostic quality images. FINDINGS: Cerebrum: The ventricles are normal for age. No evidence of midline shift, mass lesion, hemorrhage or acute infarction. No extraaxial fluid collections are seen. Posterior Fossa: There is high density material identified within the left cerebellum with mass effe ct upon the fourth ventricle and ambient cistern. Extracranial: The visualized portion of the orbits is intact. Skull: The calvaria is intact. No evidence of skull fracture. CONCLUSION: 1. Intraparenchymal hemorrhage identified within the left cerebellum with mass effect upon the fourt h ventricle and ambient cistern. These findings were relayed to the [place] emergency room to edson Hammer at 11:58 AM on October 20, 2017. Electronically signed by: Lexie Huggins MD 10/20/2017 11:58 AM EDT
[2017-10-20] MEDS ORDERED: IOHEXOL 350 MG/ML 10 ML VIAL (for RAD DIAG) IVCONTRAST ONE (12:25)
[2017-10-20] MEDS ORDERED: levETIRAcetam INJ 100 ML IV ONE (12:30)
--- NOTE | 2017-10-20 12:30 | RADRPT ---
EXAM DATE: 10/20/2017 12:25 PM EDT AGE/SEX: 37 years / Female INDICATIONS: Altered mental status. Bleed. CLINICAL DATA: This is the patient's initial encounter. Patient reports that signs and symptoms have been present for 1 day and indicates a pain score of 0/10. MEDICAL/SURGICAL HISTORY: Renal calculi. section. RADIATION DOSE: 42.26 CTDI (mGy) ; Combined studies COMPARISON: [facility], CT BRAIN W/O CONTRAST, 10/20/2017. . TECHNIQUE: Volumetric scanning was performed using a multi-row detector CT scanner during bolus infu kamryn of 85 ml Omnipaque 350 (iohexol) nonionic water-soluble contrast as a cumulative dose for multi ple exams. The data was post processed with a variety of visualization algorithms including full vo lume maximum intensity projection, multi-planar sliding thin slab reformation, curved planar reformat ion, and surface rendering techniques. Using automated exposure control and adjustment of the mA and /or kV according to patient size, radiation dose was kept as low as reasonably achievable to obtain o ptimal diagnostic quality images. FINDINGS: There is excellent visualization of the major intracranial arteries out to the second-order branch ve ssels. There is no evidence for aneurysm, vessel truncation or stenosis, and no evidence for vascula r malformation. CONCLUSION: 1. Normal CTA without evidence of aneurysm or stenosis. Electronically signed by: Lexie Huggins MD 10/20/2017 12:29 PM EDT
--- NOTE | 2017-10-20 12:40 | RADRPT ---
EXAM DATE: 10/20/2017 12:36 PM EDT AGE/SEX: 37 years / Female INDICATIONS: Altered mental status. Bleed. CLINICAL DATA: This is the patient's initial encounter. Patient reports that signs and symptoms have been present for 1 day and indicates a pain score of 0/10. MEDICAL/SURGICAL HISTORY: Renal calculi. section. RADIATION DOSE: 42.26 CTDI (mGy) ; Combined studies COMPARISON: No prior [place] exams available for comparison. TECHNIQUE: Volumetric scanning was performed using a multirow detector CT scanner during bolus infus ion of 85 ml Omnipaque 350 (iohexol) nonionic water-soluble contrast as a cumulative dose for multip le exams. The data was postprocessed with a variety of visualization algorithms including full-volu me maximum intensity projection, multiplanar sliding thin-slab reformation, curved-planar reformation , and surface-rendering techniques. Using automated exposure control and adjustment of the mA and/or kV according to patient size, radiation dose was kept as low as reasonably achievable to obtain opti mal diagnostic quality images. FINDINGS: Aortic Arch: There is a three-vessel origin of the great vessels from the aorta. No evidence of ost ial narrowing Right Carotid: The common carotid artery is intact. The carotid bulb has a normal configuration wit hout ulceration or narrowing. The internal carotid artery lumen is smooth without stenosis. The ext ernal carotid artery is intact. Left Carotid: The common carotid artery is intact. The carotid bulb has a normal configuration with out ulceration or narrowing. The internal carotid artery lumen is smooth without stenosis. The exte rnal carotid artery is intact. Vertebrals: The vertebral arteries have a symmetric diameter. No stenotic lesions are seen. Elevated flow velocities and ICA/CCA ratios have been found to correlate with increased degrees of ve ssel stenosis, calculated as percentage of diameter relative to a normal segment of distal ICA/CCA. CONCLUSION: 1. Normal exam. No evidence of calcified noncalcified plaque. No evidence of luminal stenosis. No ev idence of dissection. Electronically signed by: Lexie Huggins MD 10/20/2017 12:39 PM EDT
[2017-10-20 14:15] LABS: ACETAMINOPHEN LESS THAN 2.0 MCG/ML (10.0-30.0)
--- NOTE | 2017-10-20 15:42 | EKG ---
Date Performed: 10/20/2017 Time Performed: 11:12:57 PTAGE: 37 years EKG: Sinus rhythm NORMAL ECG NO PREVIOUS TRACING DOCTOR: Speedy Finnegan Interpretating Date/Time 10/20/2017 15:41:31
== END 2017-10-20 15:09 | disposition short-term general hospital (02) ==
LOC: PHED 10:26
DX: I61.4 Nontraumatic intracerebral hemorrhage in cerebellum (principal); F32.9 Major depressive disorder, single episode, unspecified; Z79.899 Other long term (current) drug therapy; Z72.0 Tobacco use; Z87.442 Personal history of urinary calculi
CPT/HCPCS: 70450; 70496; 70498; 71045; 80053; 80307; 84703; 85025; 93005; 96365; 99291; J1953; Q9967

== ENCOUNTER 2017-10-23 16:49 | Inpatient (IN) | payer OTHER ==
[~2017-10-23 16:49] MED LIST changes: +BUPR150CR PO; -BUPR8SUB SL; -IBUP-1129 PO; -IBUP-232 PO; -PAME25CA PO; -PREN29TA PO; +SERO100T PO; -SUBUTEX PO; -VIST25CA PO
[2017-10-24 09:45] VITALS: BP 112/68; PULSE 86; RESP 18; TEMP 97.7; O2SAT 97
[2017-10-24 12:00] VITALS: BP 107/70; PULSE 76; RESP 18; TEMP 97.5; O2SAT 97
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
[2017-10-24] MEDS ORDERED: ACETAMINOPHEN/HYDROcodone 325 MG/5 MG TAB PO PRN (12:15)
[2017-10-24] MEDS ORDERED: NYSTAT/DIPHENHY/LIDO MOUTHWASH (Adult) 120ML SWISH-SWAL PRN (12:15)
[2017-10-24] MEDS: ACETAMIN 325 MG/BUTALBITAL 50 MG/CAFFEINE 40 MG TAB PO PRN ×2 (14:44→21:23)
[2017-10-24 16:00] VITALS: BP 106/69; PULSE 66; RESP 18; TEMP 98.9; O2SAT 94
[2017-10-24 20:00] VITALS: BP 109/60; PULSE 58; RESP 18; TEMP 97.8; O2SAT 98
[2017-10-24] MEDS: QUEtiapine FUMARATE 100 MG TAB PO SCH (21:23)
[2017-10-25] VITALS: BP 100/61; PULSE 73; RESP 18; TEMP 98.3; O2SAT 95
[2017-10-25 04:00] VITALS: BP 102/68; PULSE 70; RESP 18; TEMP 97.9; O2SAT 94
[2017-10-25] MEDS: ACETAMIN 325 MG/BUTALBITAL 50 MG/CAFFEINE 40 MG TAB PO PRN ×3 (06:20→19:34)
[2017-10-25 07:10] LABS: AUTOMATED NEUTROPHIL # 4.5 TH/MM3 (1.8-7.7); BASOPHIL % 0.2 % (0.0-2.0); EOSINOPHIL # 0.1 TH/MM3 (0-0.4); EOSINOPHIL % 1.4 % (0.0-4.0); HEMATOCRIT 39.3 % (35.0-46.0); HEMOGLOBIN 13.2 GM/DL (11.6-15.3); LYMPH % 18.4 % (9.0-44.0); LYMPHOCYTE # 1.2 TH/MM3 (1.0-4.8); MEAN CELL VOLUME 89.8 FL (80.0-100.0); MEAN CORPUSCULAR HEMOGLOBIN 30.1 PG (27.0-34.0); MEAN CORPUSCULAR HGB CONC 33.6 % (32.0-36.0); MEAN PLATELET VOLUME 9.4 FL (7.0-11.0); MONO % 8.8 % (0.0-8.0); MONOCYTE # 0.6 TH/MM3 (0-0.9); NEUT % 71.2 % (16.0-70.0); PLATELET COUNT 251 TH/MM3 (150-450); RED BLOOD COUNT 4.37 MIL/MM3 (4.00-5.30); RED CELL DISTRIBUTION WIDTH 14.5 % (11.6-17.2); WHITE BLOOD COUNT 6.3 TH/MM3 (4.0-11.0)
[2017-10-25 07:43] LABS: BICARBONATE 26.8 MEQ/L (21.0-32.0); CALCIUM 8.8 MG/DL (8.5-10.1); CREATININE 0.64 MG/DL (0.50-1.00)
[2017-10-25 08:35] VITALS: BP 114/60; PULSE 67; RESP 18; TEMP 98.1; O2SAT 97
[2017-10-25] MEDS ORDERED: INFLUENZA VIRUS VACCINE (QUADRIVALENT) 0.5 ML SYR IM ONE (10:00)
[2017-10-25] MEDS: CITALOPRAM HYDROBROMIDE 20 MG TAB PO SCH (10:10)
[2017-10-25] MEDS: buPROPion HCL 150 MG SUSTAINED RELEASE TAB PO SCH (10:11)
--- NOTE | 2017-10-25 11:58 | HHI.PR ---
Subjective Remarks in no acute distress. has mild headache. complaining of pain ' to the tail bone'. worked with PT earlier today. d/w the RN and PT. Objective Vitals Vital Signs Date Time Temp Pulse Resp B/P (MAP) Pulse Ox O2 Delivery O2 Flow Rate FiO2 10/25/17 08:35 98.1 67 18 114/60 (78) 97 10/25/17 04:00 97.9 70 18 102/68 (79) 94 10/25/17 00:00 98.3 73 18 100/61 (74) 95 10/24/17 20:00 97.8 58 18 109/60 (76) 98 10/24/17 16:35 18 10/24/17 16:00 98.9 66 18 106/69 (81) 94 10/24/17 15:44 18 10/24/17 12:00 97.5 76 18 107/70 (82) 97 Result Diagram: 10/25/1761910/25/17619 Objective Remarks GENERAL: This is a well-nourished, well-developed patient, in no apparent distress. CARDIOVASCULAR: Regular rate and regular rhythm without murmurs, gallops, or rubs. RESPIRATORY: Clear to auscultation. Breath sounds equal bilaterally. No wheezes , rales, or rhonchi. GASTROINTESTINAL: Abdomen soft, non-tender, nondistended. Normal, active bowel sounds MUSCULOSKELETAL: Extremities without clubbing, cyanosis, or edema. NEURO: Alert & Oriented x4 to person, place, time, situation. Moves all ext x4 Medications and IVs Inpatient Medications Acetaminophen/ Butalbital/ Caffeine (Fioricet 325-50-40) 1 tab Q6H PRN PO HEADACHE Last administered on 10/25/17at 06:20; Start 10/24/17 at 14:15 Acetaminophen/ Hydrocodone Bitart ([place] 5-325 Mg) 1 tab Q4H PRN PO PAIN 3-10 Last administered on 10/24/17at 12:33; Start 10/24/17 at 12:15; Stop 10/24/17 at 14: 11; Status DC Bupropion HCl (Wellbutrin Sr) 150 mg DAILY PO Last administered on 10/25/17at 10: 11; Start 10/25/17 at 09:00 Citalopram Hydrobromide (CeleXA) 20 mg DAILY PO Last administered on 10/25/17at 10:10; Start 10/25/17 at 09:00 Multi-Ingredient Mouthwash/Gargle (Magic Mouthwash Adult Liq) 5 ml QID PRN SWISH-SWAL SORE THROAT Last administered on 10/24/17 17:54; Start 10/24/17 at 12: 15 Oxycodone HCl (Roxicodone) 10 mg Q6H PRN PO PAIN 6-10 Last administered on at 10:11; Start 10/24/17 at 14:15 Quetiapine Fumarate (SEROquel) 100 mg HS PO Last administered on 10/24/17 21:23 ; Start 10/24/17 at 21:00 A/P Assessment and Plan patient is a transfer from [facility] after she had a fall with cerebral bleed- - fall with; - intracerebral bleed -occipital skull fracture - T4/T7 compression fractures - was evaluated by neurosurgery; no surgical interventions needed. -continue with TLSO and f/u with neurosurgery as outpatient; f/u with neurosurgery ( [place]) in four weeks with T-spine x-rays. - consulted PT/OT/ST and rehab medicine. 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 DVT prophylaxis with SCD's. Discharge Planning awaiting PT evaluation. Rebecca Ang MD Oct 25, 2017 11:58
[2017-10-25] MEDS: NICOTINE 21 MG/24 HR PATCH T-DERMAL SCH (12:00)
[2017-10-25] MEDS ORDERED: POTASSIUM CHLORIDE 10 MEQ CAP PO ONE (12:00)
[2017-10-25] MEDS: REMOVE OLD PATCH T-DERMAL SCH (12:00)
[2017-10-25 12:34] VITALS: BP 103/59; PULSE 60; RESP 18; TEMP 97.2; O2SAT 96
[2017-10-25] MEDS: HYDROmorphone HCL PF 2 MG/ML VIAL IV PUSH PRN (15:22)
[2017-10-25 16:10] VITALS: BP 114/56; PULSE 58; RESP 18; TEMP 98; O2SAT 95
[2017-10-25 20:00] VITALS: BP 117/68; PULSE 56; RESP 18; TEMP 98; O2SAT 99
[2017-10-25] MEDS ORDERED: LACTULOSE SYRUP 20 GM/30 ML CUP PO ONE (21:00)
[2017-10-25] MEDS: QUEtiapine FUMARATE 100 MG TAB PO SCH (23:03)
[2017-10-26] VITALS: BP 111/57; PULSE 64; RESP 18; TEMP 98.7; O2SAT 94
[2017-10-26] MEDS: HYDROmorphone HCL PF 2 MG/ML VIAL IV PUSH PRN ×4 (00:12→22:22)
[2017-10-26] MEDS: ACETAMIN 325 MG/BUTALBITAL 50 MG/CAFFEINE 40 MG TAB PO PRN ×3 (01:24→18:06)
[2017-10-26 04:00] VITALS: BP 93/61; PULSE 70; RESP 18; TEMP 98.2; O2SAT 96
[2017-10-26 08:20] VITALS: BP 103/52; PULSE 61; RESP 16; TEMP 98.7; O2SAT 95
[2017-10-26] MEDS: NICOTINE 21 MG/24 HR PATCH T-DERMAL SCH (08:20)
[2017-10-26] MEDS: buPROPion HCL 150 MG SUSTAINED RELEASE TAB PO SCH (08:20)
[2017-10-26] MEDS: REMOVE OLD PATCH T-DERMAL SCH (08:20)
[2017-10-26] MEDS: CITALOPRAM HYDROBROMIDE 20 MG TAB PO SCH (08:20)
[2017-10-26 11:30] VITALS: BP_SYST 103; BP_SYST 116; BP_DIAS 52; BP_DIAS 58; PULSE 61; RESP 16; TEMP 98.7; O2SAT 95
[2017-10-26] MEDS ORDERED: MAGNESIUM HYDROXIDE SUSP 30 ML CUP PO PRN (11:45)
--- NOTE | 2017-10-26 11:45 | HHI.PR ---
Subjective Remarks in no acute distress. has some pain to the lower back. has mild headache. no BM since a few days ago. d/w the RN. Objective Vitals Vital Signs Date Time Temp Pulse Resp B/P (MAP) Pulse Ox O2 Delivery O2 Flow Rate FiO2 10/26/17 09:10 16 10/26/17 08:20 98.7 61 16 103/52 (69) 95 10/26/17 04:00 98.2 70 18 93/61 (72) 96 10/26/17 00:16 16 10/26/17 00:00 98.7 64 18 111/57 (75) 94 10/25/17 20:00 98.0 56 18 117/68 (84) 99 10/25/17 16:10 98.0 58 18 114/56 (75) 95 10/25/17 12:34 97.2 60 18 103/59 (74) 96 I/O 10/25/17 10/25/17 10/25/17 10/26/17 10/26/17 10/26/17 07:00 15:00 23:00 07:00 15:00 23:00 Output Total 200 ml Balance -200 ml Output Emesis 200 ml # Voids 3 1 4 Result Diagram: 10/25/1720 10/25/17 06 Objective Remarks GENERAL: This is a well-nourished, well-developed patient, in no apparent distress. CARDIOVASCULAR: Regular rate and regular rhythm without murmurs, gallops, or rubs. RESPIRATORY: Clear to auscultation. Breath sounds equal bilaterally. No wheezes , rales, or rhonchi. GASTROINTESTINAL: Abdomen soft, non-tender, nondistended. Normal, active bowel sounds MUSCULOSKELETAL: Extremities without clubbing, cyanosis, or edema. NEURO: Alert & Oriented x4 to person, place, time, situation. Moves all ext x4 Medications and IVs Inpatient Medications Acetaminophen/ Butalbital/ Caffeine (Fioricet 325-50-40) 1 tab Q6H PRN PO HEADACHE Last administered on 10/26/17at 08:20; Start 10/24/17 at 14:15 Acetaminophen/ Hydrocodone Bitart ([place] 5-325 Mg) 1 tab Q4H PRN PO PAIN 3-10 Last administered on 10/24/17at 12:33; Start 10/24/17 at 12:15; Stop 10/24/17 at 14: 11; Status DC Bupropion HCl (Wellbutrin Sr) 150 mg DAILY PO Last administered on 10/26/17 08: 20; Start 10/25/17 at 09:00 Citalopram Hydrobromide (CeleXA) 20 mg DAILY PO Last administered on 10/26/17 08:20; Start 10/25/17 at 09:00 Hydromorphone HCl (Dilaudid Pf Inj) 0.5 mg Q4H PRN IV PUSH BREAKTHROUGH PAIN Last administered on 10/26/17at 00:12; Start 10/25/17 at 14:30 Lactulose (Lactulose Liq) 30 ml ONCE ONCE PO Last administered on 10/25/17 23: 03; Start 10/25/17 at 21:00; Stop 10/25/17 at 21:01; Status DC Miscellaneous Information 1 DAILY T-DERMAL Last administered on 10/26/17 08:20 ; Start 10/25/17 at 12:00 Multi-Ingredient Mouthwash/Gargle (Magic Mouthwash Adult Liq) 5 ml QID PRN SWISH-SWAL SORE THROAT Last administered on 10/24/17 17:54; Start 10/24/17 at 12: 15 Nicotine (Habitrol 21 Mg Patch.24 Hr) 1 patch DAILY T-DERMAL Last administered on 10/26/17 08:20; Start 10/25/17 at 12:00 Oxycodone HCl (Roxicodone) 10 mg Q6H PRN PO PAIN 6-10 Last administered on at 05:49; Start 10/24/17 at 14:15 Potassium Chloride (KCl) 10 meq ONCE ONCE PO Last administered on 10/25/17 12: 51; Start 10/25/17 at 12:00; Stop 10/25/17 at 12:10; Status DC Quetiapine Fumarate (SEROquel) 100 mg HS PO Last administered on 10/25/17 23:03 ; Start 10/24/17 at 21:00 A/P Assessment and Plan patient is a transfer from [facility] after she had a fall with cerebral bleed- - fall with; - intracerebral bleed -occipital skull fracture - T4/T7 compression fractures - was evaluated by neurosurgery; no surgical interventions needed. -continue with TLSO and f/u with neurosurgery as outpatient; f/u with neurosurgery ( [place]) in four weeks with T-spine x-rays. - consulted PT/OT/ST and rehab medicine. 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 -constipation; laxatives as needed. DVT prophylaxis with SCD's. Discharge Planning short-term rehab. case management consulted. Rebecca Ang MD Oct 26, 2017 11:45
[2017-10-26 17:08] VITALS: BP 115/58; PULSE 61; RESP 16; TEMP 98; O2SAT 97
[2017-10-26 20:00] VITALS: BP 108/56; PULSE 62; RESP 16; TEMP 97.9; O2SAT 93
[2017-10-26] MEDS: DOCUSATE SODIUM 100 MG CAP PO SCH (20:27)
[2017-10-26] MEDS: QUEtiapine FUMARATE 100 MG TAB PO SCH (22:16)
[2017-10-27] VITALS (8 sets, daily range): BP systolic 96–113; BP diastolic 50–60; PULSE 54–105; RESP 16–20; TEMP 97.5–98.3; O2SAT 92–97
[2017-10-27] MEDS: HYDROmorphone HCL PF 2 MG/ML VIAL IV PUSH PRN ×4 (06:32→20:11)
[2017-10-27] MEDS: ACETAMIN 325 MG/BUTALBITAL 50 MG/CAFFEINE 40 MG TAB PO PRN ×2 (08:34→17:14)
[2017-10-27] MEDS: NICOTINE 21 MG/24 HR PATCH T-DERMAL SCH (08:34)
[2017-10-27] MEDS: REMOVE OLD PATCH T-DERMAL SCH (08:36)
[2017-10-27] MEDS: CITALOPRAM HYDROBROMIDE 20 MG TAB PO SCH (08:36)
[2017-10-27] MEDS: DOCUSATE SODIUM 100 MG CAP PO SCH ×2 (08:37→20:11)
[2017-10-27] MEDS: buPROPion HCL 150 MG SUSTAINED RELEASE TAB PO SCH (08:37)
--- NOTE | 2017-10-27 16:01 | HHI.PR ---
Subjective Remarks Requesting a regular diet. Blood pressure noted to be borderline hypotensive overnight with a systolic blood pressure in the 90s. Blood pressure now stable. Patient c/o pain in her tail bone and c/o constipation. Denies abdominal pain, nausea or vomiting. Objective Vitals Vital Signs Date Time Temp Pulse Resp B/P (MAP) Pulse Ox O2 Delivery O2 Flow Rate FiO2 10/27/17 09:02 98.2 61 20 104/53 (70) 93 10/27/17 04:00 97.5 70 18 106/58 (74) 97 10/27/17 02:54 65 96/60 (72) 10/27/17 00:00 98.3 54 16 98/52 (67) 95 10/26/17 20:00 97.9 62 16 108/56 (73) 93 10/26/17 18:43 16 10/26/17 18:43 16 10/26/17 17:08 98.0 61 16 115/58 (77) 97 10/26/17 16:14 16 I/O 10/26/17 10/26/17 10/26/17 10/27/17 10/27/17 10/27/17 07:00 15:00 23:00 07:00 15:00 23:00 Intake Total 480 ml Output Total 200 ml Balance -200 ml 480 ml Intake Oral 480 ml Output Emesis 200 ml # Voids 4 0 # Bowel Movements 0 Result Diagram: 10/25/1720 10/25/17619 Objective Remarks GENERAL: This is a well-nourished, well-developed patient, in no apparent distress. CARDIOVASCULAR: Regular rate and regular rhythm without murmurs, gallops, or rubs. RESPIRATORY: Clear to auscultation. Breath sounds equal bilaterally. No wheezes , rales, or rhonchi. GASTROINTESTINAL: Abdomen soft, non-tender, nondistended. Normal, active bowel sounds MUSCULOSKELETAL: Extremities without clubbing, cyanosis, or edema. NEURO: Alert & Oriented x4 to person, place, time, situation. Moves all ext x4 A/P Assessment and Plan patient is a transfer from [facility] after she had a fall with cerebral bleed- Fall Intracerebral bleed Occipital skull fracture T4-T7 compression fractures. The patient was initially brought to the emergency department at [facility] where a head CT showed an intraparenchymal hemorrhage within the left cerebellum with mass-effect upon the fourth ventricle and ambient cistern. At the time the emergency department physician contacted the neurosurgery here at [facility]. 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 The patient states that she fell likely after ingesting alcohol and accidentally taking an overdose of her Seroquel. The patient thinks she took 3 circles instead of taking 1. The patient was evaluated by neurosurgery, no surgical interventions were needed. Recommended a TLSO brace and follow-up with neurosurgery as an outpatient. Follow-up with neurosurgery ([place]) in 4 weeks with T spine x-rays. As part of the workup at [facility] the patient had a full spine x-rays which only showed fracture in the T4-T7 compression fractures. TLSO brace was recommended. Patient also had an MRI which did not show any ischemic stroke but it did show the intraparenchymal hemorrhage. MRV is reportedly negative. Consulted PT/OT/ST and rehab medicine. depression Seems to be stable. Continue Celexa, bupropion, Seroquel. Constipation She is currently on Colace. Will Rx MiraLAX orally and placed on the constipation protocol. Coccyx pain. The patient is complaining of pain in her tailbone. I will order a sacrum and coccyx x-ray. Follow-up. DVT prophylaxis with SCD's. Discharge Planning Possible discharge in a.m. Pending resolution of constipation and result on the sacrum and coccyx x-ray. Hernan Don MD Oct 27, 2017 16:01
[2017-10-27] MEDS ORDERED: SODIUM CHLORID 0.9% 500 ML INJ 500 ML IV ONE (16:30)
--- NOTE | 2017-10-27 17:18 | RADRPT ---
EXAM DATE: 10/27/2017 5:05 PM EDT AGE/SEX: 37 years / Female INDICATIONS: Low back pain from a possible fall. CLINICAL DATA: This is the patient's subsequent encounter. Patient reports that signs and symptoms h ave been present for 1 week and indicates a pain score of 9/10. MEDICAL/SURGICAL HISTORY: None. section. COMPARISON: No prior exams available for comparison. FINDINGS: Two-view examination of the sacrum and coccyx demonstrates no evidence of fracture or malalignment. The sacral ala and foramina appear symmetric and intact. The coccyx appears unremarkable. The preve rtebral soft tissues are within normal limits. CONCLUSION: No acute findings. Electronically signed by: Antonio Rivera MD 10/27/2017 5:17 PM EDT
[2017-10-27] MEDS: QUEtiapine FUMARATE 100 MG TAB PO SCH (22:45)
[2017-10-28] VITALS (8 sets, daily range): BP systolic 88–116; BP diastolic 52–69; PULSE 62–106; RESP 16–20; TEMP 97.4–98.8; O2SAT 94–98
[2017-10-28] MEDS: HYDROmorphone HCL PF 2 MG/ML VIAL IV PUSH PRN ×4 (03:01→20:19)
[2017-10-28] MEDS ORDERED: SODIUM CHLOR 0.9% 1000 ML INJ 1,000 ML IV SCH (08:45)
[2017-10-28] MEDS: buPROPion HCL 150 MG SUSTAINED RELEASE TAB PO SCH (08:50)
[2017-10-28] MEDS: CITALOPRAM HYDROBROMIDE 20 MG TAB PO SCH (08:50)
[2017-10-28] MEDS: DOCUSATE SODIUM 100 MG CAP PO SCH (08:50)
[2017-10-28] MEDS: ACETAMIN 325 MG/BUTALBITAL 50 MG/CAFFEINE 40 MG TAB PO PRN (08:50)
[2017-10-28] MEDS: NICOTINE 21 MG/24 HR PATCH T-DERMAL SCH (08:51)
[2017-10-28] MEDS: REMOVE OLD PATCH T-DERMAL SCH (08:51)
[2017-10-28] MEDS ORDERED: LACTULOSE SYRUP 20 GM/30 ML CUP PO PRN (09:30)
[2017-10-28] MEDS ORDERED: BISACODYL 10 MG SUPP RECTAL PRN (09:30)
[2017-10-28] MEDS ORDERED: SENNOSIDES 8.6 MG TAB PO PRN (09:30)
[2017-10-28] MEDS ORDERED: MAGNESIUM HYDROXIDE SUSP 30 ML CUP PO PRN (09:30)
[2017-10-28] MEDS ORDERED: POLYETHYLENE GLYCOL 17 GM PKG PO ONE (09:45)
[2017-10-28 11:17] LABS: HEMATOCRIT 39.5 % (35.0-46.0); HEMOGLOBIN 13.3 GM/DL (11.6-15.3); MEAN CELL VOLUME 90.3 FL (80.0-100.0); MEAN CORPUSCULAR HEMOGLOBIN 30.5 PG (27.0-34.0); MEAN CORPUSCULAR HGB CONC 33.8 % (32.0-36.0); MEAN PLATELET VOLUME 9.3 FL (7.0-11.0); PLATELET COUNT 227 TH/MM3 (150-450); RED BLOOD COUNT 4.38 MIL/MM3 (4.00-5.30); RED CELL DISTRIBUTION WIDTH 14.5 % (11.6-17.2); WHITE BLOOD COUNT 6.3 TH/MM3 (4.0-11.0)
[2017-10-28 11:41] LABS: BICARBONATE 26.5 MEQ/L (21.0-32.0); CALCIUM 8.4 MG/DL (8.5-10.1); CREATININE 0.65 MG/DL (0.50-1.00); PHOSPHORUS 3.4 MG/DL (2.5-4.9)
--- NOTE | 2017-10-28 17:05 | HHI.PR ---
Subjective Remarks Deferred entry, the patient was seen earlier at 10:30 AM. The patient very hypotensive earlier this a.m. Patient states that she has not been eating much since she wants a regular diet. Objective Vitals Vital Signs Date Time Temp Pulse Resp B/P (MAP) Pulse Ox O2 Delivery O2 Flow Rate FiO2 10/28/17 16:11 97.4 106 20 106/63 (77) 97 10/28/17 12:12 98.1 100 20 94/64 (74) 96 10/28/17 11:30 116/69 (85) 10/28/17 10:10 108/65 (79) 10/28/17 08:40 98.8 64 20 88/52 (64) 94 10/28/17 04:00 98.5 67 18 99/55 (70) 96 10/28/17 03:01 98.2 64 16 108/54 (72) 96 10/27/17 23:55 67 106/50 (68) 10/27/17 20:00 97.8 58 18 109/60 (76) 96 I/O 10/27/17 10/27/17 10/27/17 10/28/17 10/28/17 10/28/17 06:59 14:59 22:59 06:59 14:59 22:59 Intake Total 480 ml 240 ml 360 ml Balance 480 ml 240 ml 360 ml Intake Oral 480 ml 240 ml 360 ml # Voids 0 1 2 # Bowel Movements 0 1 Result Diagram: 10/28/17 1000 10/28/17 1000 Imaging Last Impressions Sacrum and Coccyx X-Ray 10/27/17 0000 Signed Impressions: CONCLUSION: No acute findings. Objective Remarks GENERAL: This is a well-nourished, well-developed patient, in no apparent distress. CARDIOVASCULAR: Regular rate and regular rhythm without murmurs, gallops, or rubs. RESPIRATORY: Clear to auscultation. Breath sounds equal bilaterally. No wheezes , rales, or rhonchi. GASTROINTESTINAL: Abdomen soft, non-tender, nondistended. Normal, active bowel sounds MUSCULOSKELETAL: Extremities without clubbing, cyanosis, or edema. NEURO: Alert & Oriented x4 to person, place, time, situation. Moves all ext x4 A/P Problem List: (1) Intracerebral bleed ICD Code: I61.9 - Nontraumatic intracerebral hemorrhage, unspecified (2) Fracture of occipital bone of skull with loss of consciousness ICD Code: S02.119A - Unspecified fracture of occiput, initial encounter for closed fracture; S06.9X9A - Unspecified intracranial injury with loss of consciousness of unspecified duration, initial encounter (3) Thoracic spine fracture ICD Code: S22.009A - Unspecified fracture of unspecified thoracic vertebra, initial encounter for closed fracture (4) Hepatitis C ICD Code: B19.20 - Unspecified viral hepatitis C without hepatic coma Assessment and Plan patient is a transfer from [facility] after she had a fall with cerebral bleed- Fall Intracerebral bleed Occipital skull fracture T4-T7 compression fractures. The patient was initially brought to the emergency department at [facility] where a head CT showed an intraparenchymal hemorrhage within the left cerebellum with mass-effect upon the fourth ventricle and ambient cistern. At the time the emergency department physician contacted the neurosurgery here at [facility]. 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 The patient states that she fell likely after ingesting alcohol and accidentally taking an overdose of her Seroquel. The patient thinks she took 3 circles instead of taking 1. The patient was evaluated by neurosurgery, no surgical interventions were needed. Recommended a TLSO brace and follow-up with neurosurgery as an outpatient. Follow-up with neurosurgery ([place]) in 4 weeks with T spine x-rays. As part of the workup at [facility] the patient had a full spine x-rays which only showed fracture in the T4-T7 compression fractures. TLSO brace was recommended. Patient also had an MRI which did not show any ischemic stroke but it did show the intraparenchymal hemorrhage. MRV is reportedly negative. Consulted PT/OT/ST and rehab medicine. depression Seems to be stable. Continue Celexa, bupropion, Seroquel. Constipation She is currently on Colace. Will Rx MiraLAX orally and placed on the constipation protocol. Coccyx pain. The patient is complaining of pain in her tailbone. I will order a sacrum and coccyx x-ray. Follow-up. 10/28 without any acute findings. Hypotension Likely secondary to decreased oral intake. Status post 1 L IV fluid bolus with improvement of blood pressure. Patient also noted to have creased heart rate today. I will check urinalysis and chest x-ray. DVT prophylaxis with SCD's. Discharge Planning Discharge pending a stabilization of blood pressure. UA and chest x-ray. Problem Qualifiers (1) Intracerebral bleed: Qualified Codes: S06.369D - Traumatic hemorrhage of cerebrum, unspecified, with loss of consciousness of unspecified duration, subsequent encounter Hernan Don MD Oct 28, 2017 17:05
[2017-10-28] MEDS: DOCUSATE SODIUM 50 MG/SENNA 8.6 MG TAB PO SCH (20:18)
[2017-10-28] MEDS: QUEtiapine FUMARATE 100 MG TAB PO SCH (23:49)
[2017-10-29] VITALS (8 sets, daily range): BP systolic 88–110; BP diastolic 50–65; PULSE 54–84; RESP 16–20; TEMP 97.2–98.3; O2SAT 95–98
[2017-10-29] MEDS: HYDROmorphone HCL PF 2 MG/ML VIAL IV PUSH PRN (05:52)
[2017-10-29] MEDS: DOCUSATE SODIUM 50 MG/SENNA 8.6 MG TAB PO SCH ×2 (08:11→21:05)
[2017-10-29] MEDS: buPROPion HCL 150 MG SUSTAINED RELEASE TAB PO SCH (08:11)
[2017-10-29] MEDS: CITALOPRAM HYDROBROMIDE 20 MG TAB PO SCH (08:11)
[2017-10-29] MEDS: ACETAMIN 325 MG/BUTALBITAL 50 MG/CAFFEINE 40 MG TAB PO PRN ×2 (08:11→14:51)
[2017-10-29] MEDS: REMOVE OLD PATCH T-DERMAL SCH (08:12)
[2017-10-29] MEDS: NICOTINE 21 MG/24 HR PATCH T-DERMAL SCH (08:12)
[2017-10-29] MEDS ORDERED: SODIUM CHLORID 0.9% 500 ML INJ 500 ML IV ONE ×2 (11:30→16:15)
[2017-10-29 14:06] LABS: AMORPHOUS SEDIMENT, URINE OCC; BACTERIA, URINE MANY /hpf; BILIRUBIN, URINE NEG (NEG); BLOOD, URINE TRACE (NEG); GLUCOSE,URINE NEG (NEG); KETONE, URINE NEG (NEG); MUCUS URINE FEW /lpf (OCC); NITRITE,URINE POS (NEG); SQUAMOUS EPITHELIAL CELL URINE 6 /hpf (0-5); URINE COLOR YELLOW (YELLW/STRAW); URINE LEUKOCYTE ESTERASE LARGE (NEG)
--- NOTE | 2017-10-29 15:55 | HHI.PR ---
Subjective Remarks patient c/o diplopia. BP very low this am Patient c/o severe pain in the back Patient is crying and stating that we took the only thing that made her better ( IV Dilaudid). Objective Vitals Vital Signs Date Time Temp Pulse Resp B/P (MAP) Pulse Ox O2 Delivery O2 Flow Rate FiO2 10/29/17 12:46 98.2 54 20 105/65 (78) 96 10/29/17 12:24 84 104/65 (78) 10/29/17 10:10 88/54 (65) 10/29/17 08:36 98.3 57 20 105/59 (74) 95 10/29/17 05:53 97.8 60 16 109/62 (78) 97 10/29/17 00:30 97.9 60 18 110/60 (77) 96 10/28/17 20:20 97.5 62 16 109/58 (75) 98 10/28/17 16:11 97.4 106 20 106/63 (77) 97 I/O 10/28/17 10/28/17 10/28/17 10/29/17 10/29/17 10/29/17 07:00 15:00 23:00 07:00 15:00 23:00 Intake Total 240 ml 1010 ml 1050 ml Balance 240 ml 1010 ml 1050 ml Intake Oral 240 ml 1010 ml 1050 ml # Voids 2 2 3 # Bowel Movements 0 0 Result Diagram: 10/28/17 1000 10/28/17 1000 Imaging Last Impressions Sacrum and Coccyx X-Ray 10/27/17 0000 Signed Impressions: CONCLUSION: No acute findings. Objective Remarks GENERAL: This is a well-nourished, well-developed patient, in moderate distress , crying due to pain. CARDIOVASCULAR: Regular rate and regular rhythm without murmurs, gallops, or rubs. RESPIRATORY: Clear to auscultation. Breath sounds equal bilaterally. No wheezes , rales, or rhonchi. GASTROINTESTINAL: Abdomen soft, non-tender, nondistended. Normal, active bowel sounds MUSCULOSKELETAL: Extremities without clubbing, cyanosis, or edema. NEURO: Alert & Oriented x4 to person, place, time, situation. Moves all ext x4 A/P Problem List: (1) Intracerebral bleed ICD Code: I61.9 - Nontraumatic intracerebral hemorrhage, unspecified (2) Fracture of occipital bone of skull with loss of consciousness ICD Code: S02.119A - Unspecified fracture of occiput, initial encounter for closed fracture; S06.9X9A - Unspecified intracranial injury with loss of consciousness of unspecified duration, initial encounter (3) Thoracic spine fracture ICD Code: S22.009A - Unspecified fracture of unspecified thoracic vertebra, initial encounter for closed fracture (4) Hepatitis C ICD Code: B19.20 - Unspecified viral hepatitis C without hepatic coma Assessment and Plan patient is a transfer from [facility] after she had a fall with cerebral bleed- Fall Intracerebral bleed Occipital skull fracture T4-T7 compression fractures. The patient was initially brought to the emergency department at [facility] where a head CT showed an intraparenchymal hemorrhage within the left cerebellum with mass-effect upon the fourth ventricle and ambient cistern. At the time the emergency department physician contacted the neurosurgery here at [facility]. 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 The patient states that she fell likely after ingesting alcohol and accidentally taking an overdose of her Seroquel. The patient thinks she took 3 circles instead of taking 1. The patient was evaluated by neurosurgery, no surgical interventions were needed. Recommended a TLSO brace and follow-up with neurosurgery as an outpatient. Follow-up with neurosurgery ([place]) in 4 weeks with T spine x-rays. As part of the workup at [facility] the patient had a full spine x-rays which only showed fracture in the T4-T7 compression fractures. TLSO brace was recommended. Patient also had an MRI which did not show any ischemic stroke but it did show the intraparenchymal hemorrhage. MRV is reportedly negative. Consulted PT/OT/ST and rehab medicine. 10/29 DC IV Dilaudid since it seems to be worsening hypotension. Continue with oxycodone as needed. Since patient is complaining of severe pain I will start the patient on IV Toradol as needed for breakthrough pain. depression Seems to be stable. Continue Celexa, bupropion, Seroquel. Constipation She is currently on Colace. Will Rx MiraLAX orally and placed on the constipation protocol. Coccyx pain. The patient is complaining of pain in her tailbone. I will order a sacrum and coccyx x-ray. Follow-up. 10/28 without any acute findings. Hypotension Likely secondary to decreased oral intake. Status post 1 L IV fluid bolus with improvement of blood pressure. Patient also noted to have creased heart rate today. I will check urinalysis and chest x-ray. 10/29 patient getting hypotensive. With systolic blood pressure in the 80s. UA ordered and positive with nitrite, occult blood large leukocyte esterase and large white blood cells. I will start the patient IV Rocephin. Hypertension could also be secondary to pain medications since patient got Dilaudid at 6 AM. Ordered a 500 mL IV bolus in a.m. However blood pressure still borderline low. I will order a second IV bolus of normal saline. Chest x-ray ordered. DVT prophylaxis with SCD's. Discharge Planning Discharge pending a stabilization of blood pressure. Pending chest x-ray. Problem Qualifiers (1) Intracerebral bleed: Qualified Codes: S06.369D - Traumatic hemorrhage of cerebrum, unspecified, with loss of consciousness of unspecified duration, subsequent encounter Hernan Don MD Oct 29, 2017 15:55
[2017-10-29] MEDS: cefTRIAXone INJ 2,000 MG in SODIUM CHLORIDE 0.9% INJ 100 ML IV SCH (17:16)
[2017-10-29] MEDS: KETOROLAC TROMETHAMINE 30 MG/ML (IVP) VIAL IV PUSH PRN (18:26)
[2017-10-29] MEDS: QUEtiapine FUMARATE 100 MG TAB PO SCH (21:05)
[2017-10-30 00:10] VITALS: BP 103/59; PULSE 61; RESP 16; TEMP 98; O2SAT 98
[2017-10-30] MEDS: KETOROLAC TROMETHAMINE 30 MG/ML (IVP) VIAL IV PUSH PRN ×4 (00:15→22:54)
[2017-10-30 04:40] VITALS: BP 96/54; PULSE 60; RESP 16; TEMP 97.9; O2SAT 98
[2017-10-30 08:15] VITALS: BP 90/51; PULSE 57; RESP 18; TEMP 98.4; O2SAT 98
[2017-10-30] MEDS ORDERED: SODIUM CHLORID 0.9% 500 ML INJ 500 ML IV ONE (08:15)
[2017-10-30 08:34] LABS: AUTOMATED NEUTROPHIL # 2.7 TH/MM3 (1.8-7.7); BASOPHIL # 0.1 TH/MM3 (0-0.2); BASOPHIL % 0.9 % (0.0-2.0); EOSINOPHIL # 0.2 TH/MM3 (0-0.4); HEMATOCRIT 38.6 % (35.0-46.0); HEMOGLOBIN 13.2 GM/DL (11.6-15.3); LYMPH % 38.4 % (9.0-44.0); LYMPHOCYTE # 2.2 TH/MM3 (1.0-4.8); MEAN CELL VOLUME 91.2 FL (80.0-100.0); MEAN CORPUSCULAR HEMOGLOBIN 31.2 PG (27.0-34.0); MEAN CORPUSCULAR HGB CONC 34.2 % (32.0-36.0); MEAN PLATELET VOLUME 9.4 FL (7.0-11.0); MONO % 10.4 % (0.0-8.0); MONOCYTE # 0.6 TH/MM3 (0-0.9); NEUT % 46.3 % (16.0-70.0); PLATELET COUNT 230 TH/MM3 (150-450); RED BLOOD COUNT 4.23 MIL/MM3 (4.00-5.30); RED CELL DISTRIBUTION WIDTH 14.7 % (11.6-17.2); WHITE BLOOD COUNT 5.8 TH/MM3 (4.0-11.0)
[2017-10-30] MEDS: DOCUSATE SODIUM 50 MG/SENNA 8.6 MG TAB PO SCH ×2 (08:53→21:20)
[2017-10-30] MEDS: buPROPion HCL 150 MG SUSTAINED RELEASE TAB PO SCH (08:53)
[2017-10-30] MEDS: CITALOPRAM HYDROBROMIDE 20 MG TAB PO SCH (08:53)
[2017-10-30] MEDS: NICOTINE 21 MG/24 HR PATCH T-DERMAL SCH (08:54)
[2017-10-30] MEDS: REMOVE OLD PATCH T-DERMAL SCH (09:00)
--- NOTE | 2017-10-30 09:11 | RADRPT ---
EXAM DATE: 10/29/2017 11:20 AM EDT AGE/SEX: 37 years / Female INDICATIONS: Hypotension. Patient has no chest complaints. CLINICAL DATA: This is the patient's subsequent encounter. Patient reports that signs and symptoms h ave been present for 1 week and indicates a pain score of 0/10. MEDICAL/SURGICAL HISTORY: None. None. COMPARISON: HPO, CHEST SINGLE AP, 10/20/2017. . FINDINGS: A single AP view of the chest demonstrates the lungs to be symmetrically aerated without evidence of mass, infiltrate or effusion. The cardiomediastinal contours are unremarkable. Osseous structures a re intact. CONCLUSION: Negative examination. Electronically signed by: Abhi Powell MD 10/29/2017 11:24 AM EDT
[2017-10-30 09:15] LABS: ALBUMIN 2.9 GM/DL (3.4-5.0); ALT (GPT) 40 U/L (10-53); AST (GOT) 24 U/L (15-37); BICARBONATE 23.4 MEQ/L (21.0-32.0); BLOOD UREA NITROGEN 13 MG/DL (7-18); CALCIUM 8.8 MG/DL (8.5-10.1); CHLORIDE 108 MEQ/L (98-107); CREATININE 0.67 MG/DL (0.50-1.00); GLOMERULAR FILTRATION RATE 100 ML/MIN (>89); GLUCOSE,RANDOM 80 MG/DL (74-106); SODIUM (NA) 141 MEQ/L (136-145)
[2017-10-30 09:18] LABS: ALKALINE PHOSPHATASE 104 U/L (45-117); TOTAL BILIRUBIN ADULT 0.2 MG/DL (0.2-1.0); TOTAL PROTEIN 6.3 GM/DL (6.4-8.2)
--- NOTE | 2017-10-30 09:41 | PD.CONS ---
History of Present Illness Service Neurology Consult Requested By Medical for diplopia Primary Care Physician No Primary Care Physician History of Present Illness 37 y/o female readmitted to [facility] from [facility] after she had a fall traumatic brain injury with cerebellar hemorrhage and conservative medical therapy. Subsequent to that she has been noticing diplopia mainly vertical slight headache. Denies any visual loss focal weakness or language disturbance or vertigo. Review of Systems As above and admission H&P Past Family Social History Past Medical History post- depression/ hepatitis C, anxiety Past Surgical History Reported Medications citalopram, seroquel, Wellbutrin. Allergies: Coded Allergies: No Known Allergies (Verified Allergy, Mild, 04/04/17) Family History Noncontributory Social History smokes a pack a day. drinks occasionally. Cessation encouraged the patient Review of Systems All other ROS: ROS reviewed as documented in chart Past Family Social History Allergies: Coded Allergies: No Known Allergies (Verified Allergy, Mild, 04/04/17) Active Ordered Medications Current Medications Medications (Trade) Dose Ordered Sig/Lexus Route Start Time Stop Time Status Last Admin (Wellbutrin Sr) 150 mg DAILY PO 10/25/17 09:00 10/30/17 08:53 (CeleXA) 20 mg DAILY PO 10/25/17 09:00 10/30/17 08:53 (SEROquel) 100 mg HS PO 10/24/17 21:00 10/29/17 21:05 (Magic Mouthwash Adult Liq) 5 ml QID PRN SWISH-SWAL 10/24/17 12:15 10/24/17 17:54 (Fioricet 325-50-40) 1 tab Q6H PRN PO 10/24/17 14:15 10/29/17 14:51 (Habitrol 21 Mg Patch.24 Hr) 1 patch DAILY T-DERMAL 10/25/17 12:00 10/30/17 08:54 Miscellaneous Information 1 DAILY T-DERMAL 10/25/17 12:00 10/29/17 08:12 (Roxicodone) 5 mg Q4HR PRN PO 10/26/17 11:45 10/27/17 14:34 (Roxicodone) 10 mg Q4HR PRN PO 10/26/17 12:30 10/30/17 08:53 (Faby-Colace) 1 tab BID PO 10/28/17 21:00 10/30/17 08:53 (Milk Of Magnesia Liq) 30 ml Q12H PRN PO 10/28/17 09:30 (Senokot) 17.2 mg Q12H PRN PO 10/28/17 09:30 (Dulcolax Supp) 10 mg DAILY PRN RECTAL 10/28/17 09:30 (Lactulose Liq) 30 ml DAILY PRN PO 10/28/17 09:30 Ceftriaxone Sodium 2000 mg/ Sodium Chloride 100 ml @ 200 mls/hr Q24H IV 10/29/17 17:00 10/29/17 17:16 (Toradol Inj) 15 mg Q6H PRN IV PUSH 10/29/17 16:15 11/03/17 16:14 10/30/17 00:15 Exam I&O / VS Vital Signs Date Time Temp Pulse Resp B/P (MAP) Pulse Ox O2 Delivery O2 Flow Rate FiO2 10/30/17 08:15 98.4 57 18 90/51 (64) 98 10/30/17 04:40 97.9 60 16 96/54 (68) 98 10/30/17 00:10 98.0 61 16 103/59 (74) 98 10/29/17 21:15 97.2 59 16 101/50 (67) 97 10/29/17 15:54 97.6 56 17 102/57 (72) 98 10/29/17 12:46 98.2 54 20 105/65 (78) 96 10/29/17 12:24 84 104/65 (78) 10/29/17 10:10 88/54 (65) General: Alert and Oriented, No acute distress Eye: EOMI Respiratory: Non-labored respirations Cardiology: Normal rate Neurologic: Alert, Oriented, Normal sensory, Normal motor, Normal DTR's Psychiatric: Cooperative, Appropriate mood & affect Exam Comments Awake alert oriented 3 no aphasia pleasant articulate calm. Extraocular movements overall full but slightly slower saccadic velocity in the right eye on right gaze. 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 This should improve over time We will sign off contact me if any questions (2) Depression ICD Codes: F32.9 - Major depressive disorder, single episode, unspecified Status: Chronic Plan: On multiple psychotropic agents (3) Fracture of occipital bone of skull with loss of consciousness ICD Codes: S02.119A - Unspecified fracture of occiput, initial encounter for closed fracture; S06.9X9A - Unspecified intracranial injury with loss of consciousness of unspecified duration, initial encounter Status: Resolved Problem Qualifiers (1) Intracerebral bleed: Qualified Codes: S06.369D - Traumatic hemorrhage of cerebrum, unspecified, with loss of consciousness of unspecified duration, subsequent encounter Neftali Kenney MD Oct 30, 2017 09:41
[2017-10-30 11:59] VITALS: BP 115/67; PULSE 56; RESP 18; TEMP 97.8; O2SAT 98
[2017-10-30 16:12] VITALS: BP 118/64; PULSE 60; RESP 18; TEMP 97.4; O2SAT 99
[2017-10-30] MEDS: cefTRIAXone INJ 2,000 MG in SODIUM CHLORIDE 0.9% INJ 100 ML IV SCH (16:23)
[2017-10-30] MEDS ORDERED: fentaNYL 25 MCG/HR PATCH T-DERMAL ONE (17:00)
--- NOTE | 2017-10-30 17:15 | HHI.PR ---
Subjective Remarks Deferred entry - patient seen at Patient c/o back pain bp low this am patient still c/o double vision Objective Vitals Vital Signs Date Time Temp Pulse Resp B/P (MAP) Pulse Ox O2 Delivery O2 Flow Rate FiO2 10/30/17 16:12 97.4 60 18 118/64 (82) 99 10/30/17 11:59 97.8 56 18 115/67 (83) 98 10/30/17 08:15 98.4 57 18 90/51 (64) 98 10/30/17 04:40 97.9 60 16 96/54 (68) 98 10/30/17 00:10 98.0 61 16 103/59 (74) 98 10/29/17 21:15 97.2 59 16 101/50 (67) 97 I/O 10/29/17 10/29/17 10/29/17 10/30/17 10/30/17 10/30/17 07:00 15:00 23:00 07:00 15:00 23:00 Intake Total 1050 ml 1050 ml 500 ml Balance 1050 ml 1050 ml 500 ml Intake Oral 1050 ml 1050 ml IV Total 500 ml # Voids 3 4 # Bowel Movements 0 0 Result Diagram: 10/30/17 0730 10/30/17 0730 Imaging Last Impressions Chest X-Ray 10/29/17 0000 Signed Impressions: CONCLUSION: Negative examination. Sacrum and Coccyx X-Ray 10/27/17 0000 Signed Impressions: CONCLUSION: No acute findings. Objective Remarks GENERAL: This is a well-nourished, well-developed patient, in moderate distress , crying due to pain. CARDIOVASCULAR: Regular rate and regular rhythm without murmurs, gallops, or rubs. RESPIRATORY: Clear to auscultation. Breath sounds equal bilaterally. No wheezes , rales, or rhonchi. GASTROINTESTINAL: Abdomen soft, non-tender, nondistended. Normal, active bowel sounds MUSCULOSKELETAL: Extremities without clubbing, cyanosis, or edema. NEURO: Alert & Oriented x4 to person, place, time, situation. Moves all ext x4 A/P Problem List: (1) Intracerebral bleed ICD Code: I61.9 - Nontraumatic intracerebral hemorrhage, unspecified (2) Fracture of occipital bone of skull with loss of consciousness ICD Code: S02.119A - Unspecified fracture of occiput, initial encounter for closed fracture; S06.9X9A - Unspecified intracranial injury with loss of consciousness of unspecified duration, initial encounter Status: Resolved (3) Thoracic spine fracture ICD Code: S22.009A - Unspecified fracture of unspecified thoracic vertebra, initial encounter for closed fracture (4) Hepatitis C ICD Code: B19.20 - Unspecified viral hepatitis C without hepatic coma Assessment and Plan patient is a transfer from [facility] after she had a fall with cerebral bleed- Fall Intracerebral bleed Occipital skull fracture T4-T7 compression fractures. The patient was initially brought to the emergency department at [facility] where a head CT showed an intraparenchymal hemorrhage within the left cerebellum with mass-effect upon the fourth ventricle and ambient cistern. At the time the emergency department physician contacted the neurosurgery here at [facility]. Dr. Marmolejo was council on aging director and he was undergoing an emergency surgery at that time, therefore the patient was then transferred to [facility] to be evaluated by neurosurgery. The patient states that she fell likely after ingesting alcohol and accidentally taking an overdose of her Seroquel. The patient thinks she took 3 circles instead of taking 1. The patient was evaluated by neurosurgery, no surgical interventions were needed. Recommended a TLSO brace and follow-up with neurosurgery as an outpatient. Follow-up with neurosurgery ([place]) in 4 weeks with T spine x-rays. As part of the workup at [facility] the patient had a full spine x-rays which only showed fracture in the T4-T7 compression fractures. TLSO brace was recommended. Patient also had an MRI which did not show any ischemic stroke but it did show the intraparenchymal hemorrhage. MRV is reportedly negative. Consulted PT/OT/ST and rehab medicine. 10/29 DC IV Dilaudid since it seems to be worsening hypotension. Continue with oxycodone as needed. Since patient is complaining of severe pain I will start the patient on IV Toradol as needed for breakthrough pain. 10/30 Patient with slightly better pain but taking breakthrough medication frequently. Start a fentanyl patch. depression Seems to be stable. Continue Celexa, bupropion, Seroquel. Constipation She is currently on Colace. Will Rx MiraLAX orally and placed on the constipation protocol. Coccyx pain. The patient is complaining of pain in her tailbone. I will order a sacrum and coccyx x-ray. Follow-up. 10/28 without any acute findings. Hypotension Likely secondary to decreased oral intake. Status post 1 L IV fluid bolus with improvement of blood pressure. Patient also noted to have creased heart rate today. I will check urinalysis and chest x-ray. 10/29 patient getting hypotensive. With systolic blood pressure in the 80s. UA ordered and positive with nitrite, occult blood large leukocyte esterase and large white blood cells. I will start the patient IV Rocephin. Hypertension could also be secondary to pain medications since patient got Dilaudid at 6 AM. Ordered a 500 mL IV bolus in a.m. However blood pressure still borderline low. I will order a second IV bolus of normal saline. Chest x-ray ordered. 10/30 bp still low, ordered a repeat IV fluid bolus. Continue IV Rocephin. urine culture is growing gram negative rods. fu ID and sensitivities. [facility] consulted. 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 DVT prophylaxis with SCD's. Discharge Planning Discharge pending a stabilization of blood pressure. Problem Qualifiers (1) Intracerebral bleed: Qualified Codes: S06.369D - Traumatic hemorrhage of cerebrum, unspecified, with loss of consciousness of unspecified duration, subsequent encounter Hernan Don MD Oct 30, 2017 17:15
[2017-10-30] MEDS: NS + KCL 20 MEQ INJ 1,000 ML IV SCH (18:21)
[2017-10-30 20:00] VITALS: BP 120/69; PULSE 51; RESP 15; TEMP 98.3; O2SAT 97
[2017-10-30] MEDS: QUEtiapine FUMARATE 100 MG TAB PO SCH (21:20)
[2017-10-31] VITALS: BP 91/54; PULSE 59; RESP 15; TEMP 98.3; O2SAT 98
[2017-10-31] MEDS: NS + KCL 20 MEQ INJ 1,000 ML IV SCH ×2 (04:25→12:58)
[2017-10-31 08:00] VITALS: BP 104/56; PULSE 52; RESP 18; TEMP 97.1; O2SAT 99
[2017-10-31] MEDS: CITALOPRAM HYDROBROMIDE 20 MG TAB PO SCH (08:52)
[2017-10-31] MEDS: NICOTINE 21 MG/24 HR PATCH T-DERMAL SCH (08:53)
[2017-10-31] MEDS: buPROPion HCL 150 MG SUSTAINED RELEASE TAB PO SCH (08:53)
[2017-10-31] MEDS: REMOVE OLD PATCH T-DERMAL SCH (08:53)
[2017-10-31] MEDS: DOCUSATE SODIUM 50 MG/SENNA 8.6 MG TAB PO SCH (08:53)
[2017-10-31] MEDS: KETOROLAC TROMETHAMINE 30 MG/ML (IVP) VIAL IV PUSH PRN (10:54)
[2017-10-31 12:00] VITALS: BP 99/55; PULSE 59; RESP 18; TEMP 97.8; O2SAT 97
[2017-10-31] MEDS ORDERED: NICO21DI25 T-DERMAL (12:33)
[2017-10-31] MEDS ORDERED: CIPR500T2 PO (12:33)
--- NOTE | 2017-10-31 12:34 | HHI.DCPOC ---
Discharge Care Plan Diagnosis: (1) Urinary tract infection due to Proteus (2) Intracerebral bleed (3) Thoracic spine fracture (4) Hepatitis C (5) Fracture of occipital bone of skull with loss of consciousness Goals to Promote Your Health * To prevent worsening of your condition and complications * To maintain your health at the optimal level Directions to Meet Your Goals Take your medications as prescribed Follow your dietary instruction Follow activity as directed Keep your appointments as scheduled Take your immunizations and boosters as scheduled If your symptoms worsen call your PCP, if no PCP go to Urgent Care Center or Emergency Room Smoking is Dangerous to Your Health. Avoid second hand smoke Call the 24-hour hour crisis hotline for domestic abuse at Hernan Don MD Oct 31, 2017 12:34
[2017-10-31] MEDS ORDERED: OXYC-392 PO (13:59)
[2017-10-31] MEDS ORDERED: WALKER WHEELS/F1 MIS (14:41)
[2017-10-31] MEDS: ACETAMIN 325 MG/BUTALBITAL 50 MG/CAFFEINE 40 MG TAB PO PRN (15:56)
[2017-10-31 16:00] VITALS: BP 99/57; PULSE 64; RESP 18; TEMP 97.6; O2SAT 92
[2017-11-02] MEDS ORDERED: REMOVE OLD DURAGESIC (FENTANYL) PATCH T-DERMAL SCH (17:30)
== END 2017-10-31 17:52 | disposition home or self-care (01) | DRG 83 ==
LOC: N05B 10-24 09:46
PROVIDERS: ADMIT Hospitalist; ATTEND Hospitalist
DX: S06.379A Contusion, laceration, and hemorrhage of cerebellum with loss of consciousness of unspecified duration, initial encounter (principal); S22.049A Unspecified fracture of fourth thoracic vertebra, initial encounter for closed fracture; I95.9 Hypotension, unspecified; S22.059A Unspecified fracture of T5-T6 vertebra, initial encounter for closed fracture; S22.069A Unspecified fracture of T7-T8 vertebra, initial encounter for closed fracture; S02.119A Unspecified fracture of occiput, initial encounter for closed fracture; H53.2 Diplopia; B19.20 Unspecified viral hepatitis C without hepatic coma; F53 Mental and behavioral disorders associated with the puerperium, not elsewhere classified; K59.00 Constipation, unspecified; W19.XXXA Unspecified fall, initial encounter; Z72.0 Tobacco use
CPT/HCPCS: 71045; 72220; 80048; 80053; 81001; 83735; 84100; 85025; 85027; 87077; 87086; 87186; J0696; J1170; J1885; J3480; J7030; J7040; L0200; L0484